=== PATIENT | female | born 1995 | race American Indian/Alaskan Native ===

== ENCOUNTER 2018-02-07 19:51 | Emergency (ER) | payer SELFPAY ==
[2018-02-07 20:21] LABS: Hemoglobin 12.9 gm/dl (10.1-14.3); Mean Corpuscular HGB Conc 32 % (30-34); Mean Corpuscular Hemoglobin 28 pg (28-32); Mean Corpuscular Volume 88 fl (79-97); Platelet Count 352 K/mm3 (140-440); Red Blood Count 4.57 M/mm3 (3.65-5.03); Red Cell Distribution Width 13.1 % (13.2-15.2)
[2018-02-07 20:40] LABS: BUN/Creatinine Ratio 20; Blood Urea Nitrogen 10 mg/dL (7-17); Calcium 9.1 mg/dL (8.4-10.2); Hemolysis Index 6
[2018-02-07 20:43] LABS: INR 0.85 (0.87-1.13)
--- NOTE | 2018-02-07 20:54 | Emergency Department Report ---
ED General Adult HPI - General Chief complaint: Urogenital-Female Stated complaint: BODY PAIN Time Seen by Provider: 02/07/18 20:53 Source: patient, RN notes reviewed Mode of arrival: Ambulatory Limitations: No Limitations - History of Present Illness Initial comments: This is a 22-year-old female who is previously unknown to this provider. The patient presents to the ER with 1 month of urinary frequency, one month of intermittent left leg pain, one month of feeling tired and fatigued, and one month of lightheadedness only when standing. Her symptoms do not have exacerbating or relieving factors and it did not radiate anywhere. -: Gradual, month(s) Location: left, lower extremity Radiation: non-radiation Consistency: intermittent Improves with: none Worsens with: none Associated Symptoms: malaise. denies: confusion, chest pain, cough, diaphoresis , fever/chills, headaches, loss of appetite, nausea/vomiting, rash, seizure, shortness of breath, syncope, weakness - Related Data Home Medications Medication Instructions Recorded Confirmed Last Taken Reclipsen 28 Day Tablet 02/07/18 02/07/18 Allergies Allergy/AdvReac Type Severity Reaction Status Date / Time amoxicillin [From Augmentin] Allergy Hives Verified 02/07/18 19:56 clavulanic acid Allergy Hives Verified 02/07/18 19:56 [From Augmentin] ED Review of Systems ROS: Stated complaint: BODY PAIN Other details as noted in HPI Constitutional: malaise. denies: fever Eyes: denies: eye discharge ENT: denies: epistaxis Respiratory: denies: cough Cardiovascular: denies: chest pain Gastrointestinal: denies: abdominal pain Genitourinary: frequency Musculoskeletal: arthralgia Skin: denies: lesions Neurological: denies: numbness, paresthesias, confusion, abnormal gait, vertigo Psychiatric: denies: anxiety ED Past Medical Hx - Past Medical History Previous Medical History?: No - Surgical History Past Surgical History?: No - Social History Smoking Status: Never Smoker Substance Use Type: Alcohol, Marijuana - Medications Home Medications: Home Medications Medication Instructions Recorded Confirmed Last Taken Type Reclipsen 28 Day Tablet 02/07/18 02/07/18 History ED Physical Exam - General Limitations: No Limitations General appearance: alert, in no apparent distress - Head Head exam: Present: atraumatic, normocephalic - Eye Eye exam: Present: normal appearance, PERRL, EOMI. Absent: nystagmus - ENT ENT exam: Present: normal exam, normal orophraynx, mucous membranes moist, normal external ear exam - Neck Neck exam: Present: normal inspection, full ROM - Respiratory Respiratory exam: Present: normal lung sounds bilaterally. Absent: respiratory distress - Cardiovascular Cardiovascular Exam: Present: regular rate, normal rhythm, normal heart sounds. Absent: systolic murmur, diastolic murmur, rubs, gallop - GI/Abdominal GI/Abdominal exam: Present: soft, normal bowel sounds. Absent: distended, tenderness, guarding, rebound, rigid, pulsatile mass - Extremities Exam Extremities exam: Present: normal inspection, full ROM, normal capillary refill , other (the left thigh and left leg are nontender. The compartments are soft. During the leg examination, escorted by ER grain sampler Clover Ayala). Absent: tenderness, pedal edema, joint swelling, calf tenderness - Back Exam Back exam: Present: normal inspection, full ROM. Absent: tenderness, CVA tenderness (R), paraspinal tenderness, vertebral tenderness - Neurological Exam Neurological exam: Present: alert, oriented X3, CN II-XII intact, normal gait, other (Extraocular movements intact. Tongue midline. No facial droop. Facial sensation intact to light touch in the V1, V2, V3 distribution bilaterally. 5 and 5 strength in 4 extremities.. Sensation is intact to light touch in 4 extremities.). Absent: motor sensory deficit - Psychiatric Psychiatric exam: Present: normal affect, normal mood - Skin Skin exam: Present: warm, dry, intact, normal color. Absent: rash ED Course Vital Signs 02/07/18 19:57 Temperature 98.3 F Pulse Rate 85 Respiratory 16 Rate Blood Pressure 124/77 O2 Sat by Pulse 100 Oximetry ED Medical Decision Making - Lab Data Result diagrams: 02/07/18 20:12 02/07/18 20:12 Vital Signs 02/07/18 19:57 Temperature 98.3 F Pulse Rate 85 Respiratory 16 Rate Blood Pressure 124/77 O2 Sat by Pulse 100 Oximetry Labs 02/07/18 02/07/18 02/07/18 20:12 20:12 20:12 WBC 8.4 RBC 4.57 Hgb 12.9 Hct 40.0 MCV 88 MCH 28 MCHC 32 RDW 13.1 L Plt Count 352 PT 12.0 L INR 0.85 L Sodium 135 L Potassium 3.7 Chloride 96.7 L Carbon Dioxide 22 Anion Gap 20 BUN 10 Creatinine 0.5 L Estimated GFR > 60 BUN/Creatinine Ratio 20 Glucose 79 Calcium 9.1 TSH Urine Color Urine Turbidity Urine pH Ur Specific [place] Urine Protein Urine Glucose (UA) Urine Ketones Urine Blood Urine Nitrite Ur Reducing Substances Urine Bilirubin Urine Ictotest Urine Urobilinogen Ur Leukocyte Esterase Urine WBC (Auto) Urine RBC (Auto) U Epithel Cells (Auto) Urine HCG, Qual 02/07/18 02/07/18 20:12 20:56 WBC RBC Hgb Hct MCV MCH MCHC RDW Plt Count PT INR Sodium Potassium Chloride Carbon Dioxide Anion Gap BUN Creatinine Estimated GFR BUN/Creatinine Ratio Glucose Calcium TSH 2.760 Urine Color Yellow Urine Turbidity Clear Urine pH 6.0 Ur Specific [place] 1.019 Urine Protein <15 mg/dl Urine Glucose (UA) Neg Urine Ketones Neg Urine Blood Neg Urine Nitrite Neg Ur Reducing Substances Not Reportable Urine Bilirubin Neg Urine Ictotest Not Reportable Urine Urobilinogen < 2.0 Ur Leukocyte Esterase Tr Urine WBC (Auto) < 1.0 Urine RBC (Auto) 3.0 U Epithel Cells (Auto) 1.0 Urine HCG, Qual Negative - EKG Data When compared to previous EKG there are: previous EKG unavailable 02/07/18 21:23 Normal sinus, 77 bpm, normal axis, normal intervals, not morphologically consistent with ST elevation myocardial infarction - Medical Decision Making Rectal diagnoses, including but not limited to: Diabetic ketoacidosis, , urinary tract infection, muscular leg pain, anemia, hyperglycemia Assessment and plan: 22-year-old female with multiple nonspecific complaints, no pulmonary embolus or DVT risk factors, low risk by well's criteria, perc negative. She is afebrile with reassuring vital signs, laboratory studies unremarkable, I do not support the diagnosis of urinary tract infection, , hyperglycemia or diabetic ketoacidosis. patient observed in the ER for hours without clinical decompensation, she is noted multiple times to be playing on her side with phone and in no distress. There does not appear to be any emergent condition at this time, the patient is suitable to follow-up in outpatient primary care doctor at this time. Critical care attestation.: If time is entered above; I have spent that time in minutes in the direct care of this critically ill patient, excluding procedure time. ED Disposition Clinical Impression: Left leg pain, Urinary frequency Disposition: TO HOME OR SELFCARE Is pt being admited?: No Does the pt Need Aspirin: No Condition: Stable Additional Instructions: Laboratory studies, EKG, physical exam was unremarkable. Laboratory studies demonstrated normal blood counts, normal blood sugar, normal thyroid studies, not . Follow-up with the primary care doctor within the next month. Return to the ER right away with fevers, chills, lethargy, irritability, projectile vomiting, change in mental status, confusion, inability to tolerate liquid feeds. Referrals: PRIMARY MD ULISES [Primary Care Provider] - 3-5 Days LONDON DAWN MD [Staff Physician] - 3-5 Days [facility] [Provider Group] - 3-5 Days
[2018-02-07 21:03] LABS: HCG Qualitative,Urine Negative (Negative)
[2018-02-07 21:05] LABS: Bilirubin,Urine NEG (Negative); Blood,Urine NEG (Negative); Color,Urine Yellow (Yellow); Protein,Urine <15 mg/dL mg/dL (Negative); Urobilinogen,Urine < 2.0 mg/dL (<2.0); WBC,Urine < 1.0 /HPF (0.0-6.0)
[2018-02-07 21:40] VITALS: BP 123/69
== END 2018-02-07 21:40 | disposition home or self-care (01) ==
LOC: ED 19:51
DX: M79.605 Pain in left leg (principal); R35.0 Frequency of micturition; F12.10 Cannabis abuse, uncomplicated; Z88.1 Allergy status to other antibiotic agents; Z88.8 Allergy status to other drugs, medicaments and biological substances
CPT/HCPCS: 36415; 80048; 81001; 81025; 84443; 85027; 85610; 93005; 93010; 99283